=== PATIENT | female | born 1995 | race Caucasian/White ===

== ENCOUNTER 2018-08-05 11:27 | Emergency (ER) | payer OTHER ==
[2018-08-05 12:27] LABS: Bilirubin Negative (Negative); Blood, Urine Negative (Negative); Clarity CLOUDY (Clear); Glucose, Urine (Dipstick) Negative (Negative); Leukocyte Negative (Negative); Nitrite Negative (Negative); Protein, Urine (Dipstick) Negative (Neg-Trace); Specific Gravity, Urine 1.028 (1.002-1.036); Urobilinogen 0.2 mg/dL (0.2-1.0)
[2018-08-05] MEDS ORDERED: Ondansetron PF 4 MG/2 ML Vial ONE (13:14)
[2018-08-05 13:22] LABS: #Eosinphils 0.1 thou/uL (0.0-0.7); #Lymphocytes 3.2 thou/uL (1.20-3.40); #Monocytes 0.7 thou/uL (0.11-0.59); #Neutrophils 6.5 thou/uL (1.40-6.50); %Basophils 0.5 % (0.0-1.0); %Lymphocytes 30.2 % (28.0-48.0); %Neutrophils 61.3 % (31.0-61.0); Hemoglobin 13.9 g/dL (12.0-16.0); Mean Corpuscular HGB CONC 34.7 g/dL (32.0-36.0); Mean Corpuscular Volume 83.5 fL (78.0-98.0); Mean Platelet Volume 7.5 fL (7.4-10.4); Platelet Count 215 thou/uL (130-400); RBC Distribution Width 11.5 % (11.5-14.5); Red Blood Cell (RBC) Count 4.81 mill/uL (4.00-5.20); White Blood Cell (WBC) Count 10.6 thou/uL (4.8-10.8)
[2018-08-05 13:42] LABS: ALT (SGPT) 14 U/L (8-55); AST (SGOT) 13 U/L (5-34); Albumin 3.7 g/dL (3.5-5.0); Alkaline Phosphatase 57 U/L (40-150); Anion Gap 12 mmol/L (10-20); BUN (Urea Nitrogen) 7 mg/dL (7.0-18.7); Bilirubin, Total 0.2 mg/dL (0.2-1.2); Calc. Creatinine Clearance 0 mL/min (70-130); Calcium 9.4 mg/dL (7.8-10.44); Carbon Dioxide 23 mmol/L (22-29); Chloride 105 mmol/L (98-107); Estimated GFR-MDRD Greater than 90; Glucose 86 mg/dL (70-105); Lipase 9 U/L (8-78); Potassium 3.8 mmol/L (3.5-5.1); Protein, Total 6.7 g/dL (6.0-8.3); Sodium 136 mmol/L (136-145)
[2018-08-05] MEDS ORDERED: Ketamine 50 MG/ML (10ML VIAL) ONE (14:41)
== END 2018-08-05 14:40 | disposition home or self-care (01) ==
LOC: ERS 11:27
DX: O21.0 Mild hyperemesis gravidarum (principal); O99.512 Diseases of the respiratory system complicating pregnancy, second trimester; J45.909 Unspecified asthma, uncomplicated; Z3A.14 14 weeks gestation of pregnancy
CPT/HCPCS: 36415; 80053; 81003; 83690; 85025; 86900; 86901; 96361; 96374; J2405

== ENCOUNTER 2019-01-18 18:46 | Emergency (ER) | payer OTHER ==
[2019-01-18] MEDS ORDERED: Lidocaine 1% (PF) 30 ML VIAL ONE (19:05)
== END 2019-01-18 19:31 | disposition home or self-care (01) ==
LOC: ERS 18:46
DX: L02.211 Cutaneous abscess of abdominal wall (principal); J45.909 Unspecified asthma, uncomplicated
CPT/HCPCS: 10060; J2001

== ENCOUNTER 2019-01-30 22:15 | Day surgery (SDC) | payer OTHER ==
[2019-01-30 22:55] VITALS: BMI 41.8
[2019-01-30 23:16] LABS: Amnisure Test No Membranes Rupture (No Rupture)
[2019-01-30 23:17] LABS: Amnisure Internal Control QC ACCEPTABLE (ACCEPTABLE)
[2019-01-30] MEDS ORDERED: hydrALAZINE 20 MG/ML VIAL SLOW IVP PRN (23:35)
--- NOTE | 2019-01-31 04:56 | SS ---
DATE OF ADMISSION: 01/30/2019 DATE OF DISCHARGE: 01/30/2019 REGULAR PHYSICIAN: Annalise Adrian MD EVALUATING PHYSICIAN: Amadou Lowry MD CHIEF COMPLAINT: Possible leakage of fluid over the last 24 hours. HISTORY OF PRESENT ILLNESS: Ms. Jean is a 23-year-old white G2, P0, with an estimated date of confinement of 01/30/2019, who presents thinking she might be leaking over the last 24 hours with intermittent contractions starting this evening. Her care has been with Dr. Adrian and has been without complications. PAST MEDICAL HISTORY: None. PAST SURGICAL HISTORY: Includes surgery to her foot, her face, open reduction of a fractured arm as well as an elective termination of . CURRENT MEDICATIONS: vitamins. ALLERGIES: INCLUDE OMNICEF AND TETRACYCLINE. SOCIAL HISTORY: Denies tobacco, alcohol, or drug use. FAMILY HISTORY: Unremarkable. REVIEW OF SYSTEMS: Denies nausea, vomiting, fever, chills, vaginal bleeding, or decreased movement. PHYSICAL EXAMINATION: VITAL SIGNS: Vital signs are stable. She is afebrile. GENERAL: She is pleasant, in no acute distress. ABDOMEN: Soft, nontender, and gravid. PELVIC: Exam by Labor nurse shows the cervix to be closed and long. Prior to this, an AmniSure was obtained and this returns negative. heart rate tracing is stable with spontaneous accelerations. Uterine contractions are seen every 5-7 minutes in a [id number] to palpation. ASSESSMENT: 1. Forty-week intrauterine . 2. No evidence of ruptured membranes or active labor at this time. PLAN: The patient will be dismissed to home. She was given complete precautions. She states she has an appointment with Dr. Adrian in her office in the morning. Job ID: [id number]
== END 2019-01-30 23:48 | disposition home or self-care (01) ==
LOC: L&D/OP 22:15
PROVIDERS: ATTEND Obstetrics & Gynecology
DX: O47.1 False labor at or after 37 completed weeks of gestation (principal); Z3A.40 40 weeks gestation of pregnancy; Z88.1 Allergy status to other antibiotic agents
CPT/HCPCS: 84112; 99282

== ENCOUNTER 2019-02-07 19:30 | Inpatient (IN) | payer OTHER ==
[2019-02-07] MEDS: Lactated Ringer's 1,000 ML IV SCH (20:30)
[2019-02-07] MEDS ORDERED: Acetaminophen 500 MG TAB PO PRN (21:19)
[2019-02-07] MEDS ORDERED: Lidocaine 1% (PF) 30 ML VIAL SC PRN (21:19)
[2019-02-07] MEDS ORDERED: hydrALAZINE 20 MG/ML VIAL SLOW IVP PRN (21:19)
[2019-02-07] MEDS ORDERED: Misoprostol 200 MCG TAB PR PRN (21:19)
[2019-02-07] MEDS ORDERED: HYDROcodone/Acetaminophen 5/325 mg Tablet PO PRN (21:19)
[2019-02-07] MEDS ORDERED: Ibuprofen 800 MG TAB PO PRN (21:19)
[2019-02-07] MEDS ORDERED: NS w/ Oxytocin 10 units 500 ML IV SCH (21:19)
[2019-02-07] MEDS ORDERED: Butorphanol Tartrate 1 MG/ML VIAL SLOW IVP PRN (21:19)
[2019-02-07] MEDS ORDERED: Ondansetron PF 4 MG/2 ML Vial IVP PRN (21:19)
[2019-02-07] MEDS ORDERED: Carboprost 250 MCG/ML AMP IM PRN (21:19)
[2019-02-07] MEDS ORDERED: NS / Oxytocin 40 units/1000ml 1,000 ML IV PRN (21:19)
[2019-02-07] MEDS ORDERED: Promethazine HCl 25 MG/ML VIAL IM PRN (21:19)
[2019-02-07] MEDS ORDERED: Zolpidem Tartrate 5 MG TAB PO PRN (21:19)
[2019-02-07 21:52] LABS: Mean Corpuscular HGB CONC 33.5 g/dL (32.0-36.0); Mean Corpuscular Hemoglobin 27.4 pg (27.0-31.0); Mean Corpuscular Volume 81.8 fL (78.0-98.0); Mean Platelet Volume 8.8 fL (7.4-10.4); Platelet Count 231 thou/uL (130-400); RBC Distribution Width 12.6 % (11.5-14.5); Red Blood Cell (RBC) Count 4.37 mill/uL (4.20-5.40)
[2019-02-07 22:00] VITALS: BMI 42.5
[2019-02-07 22:39] LABS: Syphilis Antibody Nonreactive (Nonreactive); Syphilis Antibody Index 0.04 S/CO (<1.00 Non-Reactive)
[2019-02-07 22:43] LABS: HBSAg Index 0.13 S/CO (0-0.99); Hep B Surf Ag Non-Reactive S/CO (NonReactive)
[2019-02-07] MEDS: Misoprostol 100 MCG TAB VAG SCH (22:58)
[2019-02-07] MEDS ORDERED: FLU VACC QS2019-20(6MOS UP)/PF 60 MCG/0.5 ML SYRINGE IM ONE (23:00)
[2019-02-08] MEDS: Misoprostol 100 MCG TAB VAG SCH (02:16)
[2019-02-08] MEDS: Lactated Ringer's 1,000 ML IV SCH ×3 (03:11→10:29)
[2019-02-08] MEDS ORDERED: Fentanyl 4 mcg/Bup 0.1% Cadd 100 ML ONE ×2 (07:45→14:31)
[2019-02-08] MEDS ORDERED: Lactated Ringer's 500 ML IV PRN (09:13)
[2019-02-08] MEDS ORDERED: ePHEDrine/0.9% NaCl/PF SYRINGE 50 mg/10 ml SLOW IVP PRN (09:13)
[2019-02-08] MEDS ORDERED: Naloxone HCl 0.4 mg/ml Vial IVP PRN ×2 (09:13)
[2019-02-08] MEDS ORDERED: Acetaminophen 325 MG TAB PO PRN (09:13)
[2019-02-08] MEDS ORDERED: Promethazine HCl 25 MG/ML VIAL IM PRN (09:13)
[2019-02-08] MEDS ORDERED: Ondansetron PF 4 MG/2 ML Vial IVP PRN (09:13)
[2019-02-08] MEDS ORDERED: diphenhydrAMINE 50 MG/ML VIAL IVP PRN (09:13)
[2019-02-08] MEDS ORDERED: Fentanyl 4 mcg/Bupivacaine 0.1% Cassette 100 ML EPIDURAL SCH (09:15)
[2019-02-08] MEDS ORDERED: Communication Order-Pharmacy FS SCH (09:15)
[2019-02-08] MEDS ORDERED: Calcium Carbonate 500 MG ChewTAB PO PRN (12:29)
[2019-02-08 17:00] LABS: Actual Bicarbonate (HCO3a) 23.8 mEq/L (22-28); Base Excess (BEa) -4.5 mEq/L (-2.0 to +3.0)
[2019-02-08 17:02] LABS: Actual Bicarbonate (HCO3v) 22 mEq/L (22-28); Base Excess -4.7 mEq/L (-2.0 to +3.0); pH (Cord, venous) 7.31 (7.32-7.43)
[2019-02-08] MEDS ORDERED: Adacel (T-DAP) 0.5 ML SYRINGE IM ONE (17:09)
[2019-02-08] MEDS ORDERED: Milk Of Magnesia 30 ML UDCUP PO PRN (17:09)
[2019-02-08] MEDS ORDERED: traMADol HCl 50 MG TAB PO PRN (17:09)
[2019-02-08] MEDS ORDERED: Lanolin Ointment 7 GM TUBE TOP PRN (17:09)
[2019-02-08] MEDS ORDERED: Bisacodyl 10 MG SUPP PR PRN (17:09)
[2019-02-08] MEDS ORDERED: hydrALAZINE 20 MG/ML VIAL SLOW IVP PRN (17:09)
[2019-02-08] MEDS ORDERED: Benzocaine-Menthol 82.5 ML CAN TOP PRN (17:09)
--- NOTE | 2019-02-08 17:11 | PDOC.OPDEL ---
OB Operative/Delivery Note Delivery Dr/Surgeon: Kaylah Pre-Delivery Diagnosis: elective induction, non-reassuring tracing ( second stage with recurrent late decelerations.) Procedure/Post Delivery Dx: operative vaginal delivery (low forcep c/c/+3 ... nuchal cord x 1 reduced.) Anesthesia: epidural - Findings A Sex: male Weight: 7 lb 9 oz - 1 min: 8 - 5 min: 9 - Additional Findings/Plan Placenta delivered: spontaneous Repaired Obstetrical Laceration: 2nd degree (with vaginal sidewall) Estimated blood loss: 750ml Post delivery plan: routine recovery
[2019-02-08] MEDS ORDERED: NS / Oxytocin 40 units/1000ml 1,000 ML IV SCH (17:15)
[2019-02-08] MEDS: Docusate Calcium (SURFAK) 240 MG CAP PO SCH (21:48)
[2019-02-08] MEDS: Ibuprofen 800 MG TAB PO SCH (21:48)
[2019-02-09 05:52] LABS: Hemoglobin 9.7 g/dL (12.0-16.0)
[2019-02-09] MEDS: Ibuprofen 800 MG TAB PO SCH ×3 (06:19→20:51)
--- NOTE | 2019-02-09 08:21 | PDOC.PP ---
Post Progress Note Post Day #: 1 PO intake tolerated: yes Flatus: yes Ambulation: yes Vital Signs (12 hours) Temp Pulse Resp BP Pulse Ox 02/09/19 07:40 98.2 F 112 H 20 117/61 99 02/09/19 04:11 98.4 F 94 18 122/76 02/08/19 23:55 98.2 F 105 H 18 136/78 02/08/19 21:40 99 18 119/67 98 02/08/19 20:25 98.1 F 100 18 129/73 99 Weight Weight 240 lb Result Diagrams: 02/09/19 05:31 Additional Labs: Post Labs Blood Type A POSITIVE 02/07/19 21:47 Hep Bs Antigen Non-Reactive S/CO (NonReactive) 02/07/19 21:46 - Assessment/Plan Doing well post day 1 from low forcep assisted vaginal delivery for non reassurring heart rate tracing. Routine care. Anticipate discharge in AM. F/u 6 weeks.
[2019-02-09] MEDS: Ferrous Sulfate 325 MG TAB PO SCH ×2 (09:05→20:52)
[2019-02-09] MEDS: Docusate Calcium (SURFAK) 240 MG CAP PO SCH ×2 (09:05→20:51)
[2019-02-09] MEDS: Prenatal Vitamin 1 TAB PO SCH (09:05)
[2019-02-10] MEDS: Ibuprofen 800 MG TAB PO SCH ×2 (05:21→14:32)
[2019-02-10 09:14] VITALS: BP 140/79; TEMP 98.4
[2019-02-10] MEDS: Prenatal Vitamin 1 TAB PO SCH (09:46)
[2019-02-10] MEDS: Ferrous Sulfate 325 MG TAB PO SCH (09:46)
[2019-02-10] MEDS: Docusate Calcium (SURFAK) 240 MG CAP PO SCH (09:46)
--- NOTE | 2019-02-12 10:23 | DIS ---
DATE OF ADMISSION: 02/07/2019 DATE OF DISCHARGE: 02/10/2019 ADMITTING DIAGNOSIS: Elective induction of labor at 41 weeks' gestation. DISCHARGE DIAGNOSIS: Status post forceps-assisted vaginal delivery for nonreassuring heart tones. PROCEDURE PERFORMED: Forceps-assisted vaginal delivery. CONSULTATIONS: None. HOSPITAL COURSE: The patient is a 23-year-old, G2, now P1 female, who presented to Labor and Delivery for a scheduled elective induction of labor at 41 weeks' gestation resulting in forceps-assisted vaginal delivery. For complete details, please refer to the delivery note. Her course has been uncomplicated. Today is day 2, she is tolerating p.o., voiding on her own, having decreased lochia and good pain control. PHYSICAL EXAMINATION: VITAL SIGNS: Most recent vital signs; blood pressure is 137/83, temperature is 98.2, pulse of 109, and respiratory rate of 18. GENERAL: She appears to be in no acute distress. She is alert and oriented, cooperative and pleasant to interact with. HEENT: Head is normocephalic, atraumatic. ABDOMEN: Fundus is firm. EXTREMITIES: Nontender. She has significant edema, but it is symmetrical and it has been present for several weeks. The patient will be discharged home on tramadol as written by Dr. Adrian. She has instructions to follow up with her primary OB in 6 weeks or sooner if she experiences fever, increasing pain, or bleeding. Job ID: [id number]
== END 2019-02-10 15:00 | disposition home or self-care (01) | DRG 807 ==
LOC: L&D 19:44 → 3SW 02-08 20:44
PROVIDERS: ADMIT Obstetrics & Gynecology; ATTEND Obstetrics & Gynecology
PROC: 10D07Z3 Extraction of Products of Conception, Low Forceps, Via Natural or Artificial Opening (ICD-10-PCS; principal; 2019-02-08)
PROC: 0KQM0ZZ Repair Perineum Muscle, Open Approach (ICD-10-PCS; 2019-02-08)
PROC: 3E0P7VZ Introduction of Hormone into Female Reproductive, Via Natural or Artificial Opening (ICD-10-PCS; 2019-02-08)
PROC: 3E033VJ Introduction of Other Hormone into Peripheral Vein, Percutaneous Approach (ICD-10-PCS; 2019-02-08)
PROC: 3E02340 Introduction of Influenza Vaccine into Muscle, Percutaneous Approach (ICD-10-PCS; 2019-02-08)
DX: O76 Abnormality in fetal heart rate and rhythm complicating labor and delivery (principal); Z37.0 Single live birth; O69.81X0 Labor and delivery complicated by cord around neck, without compression, not applicable or unspecified; O70.1 Second degree perineal laceration during delivery; Z3A.41 41 weeks gestation of pregnancy; Z23 Encounter for immunization
CPT/HCPCS: 36415; 51702; 82805; 85014; 85018; 85027; 86780; 86850; 86900; 86901; 87340; J0595; J2590